=== PATIENT | male | born 1960 | race Two or more races ===

== ENCOUNTER 2021-03-12 20:07 | Inpatient (IN) | payer MEDICAID ==
[~2021-03-12] VITALS: Ht 165.1 cm; Wt 58.5 kg
--- NOTE | 2021-03-12 20:43 | NUR ---
PATIENT BIBPA FROM [facility] C/O LEFT FOOT GANGRENE. PATIENT A/O, RR EVEN AND UNLABORED, NO SOB NOTED, PATIENT CONNECTED TO CHILDREN LIBRARIAN AND POX.
--- NOTE | 2021-03-12 20:44 | NUR ---
ER PA AT BEDSIDE
--- NOTE | 2021-03-12 20:54 | NUR ---
LAC #20G S/L; PATENT AND INTACT. BIG DATA ADMIN AT PT'S BEDSIDE & BLOOD COLLECTED
--- NOTE | 2021-03-12 21:09 | NUR ---
BODY SHOP SUPERVISOR AT PT'S BEDSIDE
[2021-03-12 21:37] LABS: BASOPHILS # (AUTO) 0.1 K/uL (0.0-0.2); BASOPHILS % (AUTO) 0.8 % (0.0-2.0); EOSINOPHILS % (AUTO) 1.9 % (0.0-6.0); HEMATOCRIT 33 % (39-51); LYMPHOCYTES # (AUTO) 2.2 K/uL (0.8-4.8); LYMPHOCYTES % (AUTO) 20.9 % (20.0-44.0); MEAN CORPUSCULAR HGB CONC 33 g/dl (31.0-36.0); MEAN CORPUSCULAR VOLUME 87 fL (80-96); MONOCYTES # (AUTO) 0.9 K/uL (0.1-1.30); MONOCYTES % (AUTO) 8.1 % (2.0-12.0); NEUTROPHILS # (AUTO) 7.2 K/uL (1.8-8.9); NEUTROPHILS % (AUTO) 68.3 % (43.0-81.0); PLATELET COUNT (AUTO) 824 K/uL (150-450); RED BLOOD CELL COUNT(AUTO) 3.82 MIL/uL (4.5-6.0); WHITE BLOOD COUNT (AUTO) 10.5 K/uL (4.3-11.0)
[2021-03-12 21:39] LABS: CALCIUM, SERUM 8.8 mg/dL (8.5-10.1); CARBON DIOXIDE 23 mmol/L (21-32); CHLORIDE 96 mmol/L (98-107); CREATININE 0.9 mg/dL (0.6-1.3); GLUCOSE 76 mg/dL (74-106); POTASSIUM 4.1 mmol/L (3.5-5.1); SODIUM SERUM 129 mmol/L (136-145); UREA NITROGEN, BLOOD 15 mg/dL (7-18)
[2021-03-12 21:44] LABS: ALANINE AMINOTRANSFERASE 20 U/L (12-78); ALBUMIN 2.4 g/dL (3.4-5.0); ALKALINE PHOSPHATASE 128 U/L (46-116); ASPARTATE AMINOTRANSFERASE 19 U/L (15-37); BILIRUBIN,TOTAL 0.1 mg/dL (0.2-1.0); TOTAL PROTEIN, SERUM 8.1 g/dL (6.4-8.2)
--- NOTE | 2021-03-12 21:45 | NUR ---
URINE COLLECTED AND SENT TO LAB
--- NOTE | 2021-03-12 21:48 | NUR ---
LACTIC ACID 2.2. AIRAM LOPEZ NOTIFIED
[2021-03-12] MEDS ORDERED: VANCOMYCIN 1 GM VIAL ONE (21:59)
[2021-03-12] MEDS ORDERED: VANCOMYCIN 1 GM in IV D5W 250 ML IV ONE (22:00)
[2021-03-12] MEDS ORDERED: IV NS 0.9% 1,000 ML BAG IV ONE ×2 (22:00)
[2021-03-12 22:40] LABS: BILIRUBIN,URINE NEGATIVE (NEGATIVE); COLOR,URINE YELLOW (YELLOW); LEUKOCYTE ESTERASE ,URINE NEGATIVE (NEGATIVE); NITRITE, URINE NEGATIVE (NEGATIVE); PROTEIN,URINE 100 mg/dl (NEGATIVE); UGLUCOSE NEGATIVE (NEGATIVE); UROBILINOGEN,URINE 0.2 EU/dL (0.2)
[2021-03-12 22:48] LABS: BACTERIA,URINE None seen /HPF (None Seen); SQUAMOUS EPITHELIAL CELL,UR Few /HPF (None Seen); WBC,URINE 0-2 /HPF (0-3)
[2021-03-13] MEDS ORDERED: ONDANSETRON HCL/PF 4 MG/2 ML VIAL IVP PRN
[2021-03-13] MEDS ORDERED: MAGNESIUM HYDROXIDE 30 ML UDC PO PRN
[2021-03-13] MEDS ORDERED: HYDROCODONE/APAP 5/325MG TABLET PO PRN
[2021-03-13] MEDS ORDERED: ACETAMINOPHEN 325 MG TABLET PO PRN
[2021-03-13] MEDS ORDERED: DEXTROSE 50%-WATER 50 ML DISP.SYRIN IV PRN
--- NOTE | 2021-03-13 00:22 | NUR ---
US TECH AT PT'S BEDSIDE
--- NOTE | 2021-03-13 00:23 | NUR ---
ASSIGNED TO 115-2
--- NOTE | 2021-03-13 00:24 | NUR ---
CALLED FOR REPORT, RN ON PHONE
--- NOTE | 2021-03-13 00:29 | NUR ---
REPORT GIVEN TO REHAN SALEEM
--- NOTE | 2021-03-13 00:30 | NUR ---
RN NOTE REPORT RECEIVED BY REHAN AGUILAR.
--- NOTE | 2021-03-13 00:40 | NUR ---
PT TRANSFERRED TO [facility]
--- NOTE | 2021-03-13 00:45 | NUR ---
RN NOTE PT TRANSFERRED TO [facility]IA GURNEY FROM ER. PT IS ON ROOM AIR SHOWING NO S/S OF RESP DISTRESS/SOB. BREATHING EVEN AND UNLABORED. PT IS CONFUSED, A/OX1. LEFT TOE GANGRENE NOTED. ON CCHO DIET. IV ACCESS NOTED ON LEFT AC #20. LINE FLUSHED, PATENT, AND INTACT WITH NO SIGNS OF INFILTRATION. ALL SAFETY MEASURES IMPLEMENTED. CALL LIGHT WITHIN REACH. BED ALARM ON. BED LOCKED AND IN LOWEST POSITION. WILL CONTINUE TO MONITOR AND ASSESS FOR ANY CHANGES DURING SHIFT.
[2021-03-13 01:00] VITALS: BP 126/77
[2021-03-13] MEDS ORDERED: CEFTRIAXONE 1 G VIAL ONE (01:00)
[2021-03-13] MEDS ORDERED: CEFEPIME 1 GM in IV D5W 50 ML IV SCH (01:00)
[2021-03-13] MEDS: IV NS 0.9% 1,000 ML IV PRN ×2 (01:04→23:41)
[2021-03-13] MEDS ORDERED: CEFEPIME 1 GM VIAL ONE (01:14)
[2021-03-13 04:00] VITALS: BP 130/80
--- NOTE | 2021-03-13 06:56 | NUR ---
RN NOTE NO CHANGES IN PT CONDITION DURING SHIFT. PT IS ON ROOM AIR SHOWING NO S/S OF RESP DISTRESS/SOB. BREATHING EVEN AND UNLABORED. PT IS CONFUSED, A/OX1. LEFT TOE GANGRENE NOTED. IV ACCESS NOTED ON LEFT AC #20. LINE FLUSHED, PATENT, AND INTACT WITH NO SIGNS OF INFILTRATION. ALL DUE MEDS GIVEN ORDERED. PT KEPT CLEAN AND COMFORTABLE. ALL SAFETY MEASURES IMPLEMENTED. CALL LIGHT WITHIN REACH. BED ALARM ON. BED LOCKED AND IN LOWEST POSITION. WILL ENDORSE TO MORNING SHIFT RN FOR FRANK.
[2021-03-13] MEDS ORDERED: HALO5TAB PO (07:38)
[2021-03-13] MEDS ORDERED: ATOR20TA PO (07:38)
[2021-03-13] MEDS ORDERED: MULT-447 PO (07:38)
[2021-03-13] MEDS ORDERED: INSU100V39 SQ (07:38)
[2021-03-13] MEDS ORDERED: ASCO500C17 PO (07:38)
[2021-03-13] MEDS ORDERED: INSU100V7 SQ (07:38)
[2021-03-13] MEDS ORDERED: METF-442 PO (07:38)
--- NOTE | 2021-03-13 07:49 | NUR ---
RN OPENING NOTE PATIENT RECEIVED IN BED, RESTING. PATIENT ON ROOM AIR WITH NO SIGNS OF LABORED BREATHING AT THIS TIME. BILATERAL SOFT WRIST RESTRAINS ON, SKIN WARM AND INTACT. LEFT AC 20G IV IN PLACE. BED LOCKED AND IN LOWEST POSITION, CALL LIGHT WITHIN REACH, 3 SIDE RAILS UP. NO SIGNS OF DISTRESS NOTED AT THIS TIME. WILL CONTINUE TO MONITOR.
[2021-03-13 07:54] LABS: BASOPHILS % (AUTO) 0.5 % (0.0-2.0); EOSINOPHILS % (AUTO) 1.6 % (0.0-6.0); HEMATOCRIT 30 % (39-51); HEMOGLOBIN 10.2 g/dL (13.5-17.5); LYMPHOCYTES # (AUTO) 1.9 K/uL (0.8-4.8); MEAN CORPUSCULAR HGB CONC 34 g/dl (31.0-36.0); MEAN CORPUSCULAR VOLUME 86 fL (80-96); MONOCYTES # (AUTO) 0.6 K/uL (0.1-1.30); MONOCYTES % (AUTO) 5.9 % (2.0-12.0); NEUTROPHILS # (AUTO) 6.9 K/uL (1.8-8.9); PLATELET COUNT (AUTO) 879 K/uL (150-450); RED BLOOD CELL COUNT(AUTO) 3.52 MIL/uL (4.5-6.0); WHITE BLOOD COUNT (AUTO) 9.5 K/uL (4.3-11.0)
[2021-03-13 08:00] VITALS: BP 128/72
[2021-03-13] MEDS: BLOOD SUGAR DIAGNOSTIC 1 EACH STRIP IN SCH ×4 (08:04→23:24)
[2021-03-13] MEDS: PANTOPRAZOLE 40 MG TABLET.DR PO SCH (08:07)
[2021-03-13 08:11] LABS: ALBUMIN 2.4 g/dL (3.4-5.0); BILIRUBIN,TOTAL 0.1 mg/dL (0.2-1.0); CALCIUM, SERUM 8.3 mg/dL (8.5-10.1); CREATININE 0.6 mg/dL (0.6-1.3); MAGNESIUM 1.8 mg/dL (1.8-2.4); PHOSPHORUS 3.3 mg/dL (2.5-4.9); POTASSIUM 4.7 mmol/L (3.5-5.1); TOTAL PROTEIN, SERUM 7.2 g/dL (6.4-8.2)
[2021-03-13 08:28] LABS: THYROID STIMULATING HORMONE 4.384 uIU/mL (0.358-3.74)
--- NOTE | 2021-03-13 09:22 | NUR ---
RN NOTE WAITING FOR MIDLINE NURSE TO PLACE IV ACCESS. IVPB MEDICATION PENDING UNTIL ACCESS. WILL CONTINUE TO MONITOR.
--- NOTE | 2021-03-13 10:03 | NUR ---
WOUND CARE CONSULT: REVIEWED CHART, NURSING DOCUMENTATION AND PHOTOS WHICH INDICATE LEFT FOOT BLACK NECROTIC TISSUE, PRESENT ON ADMISSION.DR PAYNE NOTIFIED OF DPM CONSULT REQUEST. RECOMMENDATIONS MADE FOR SKIN PROTECTION. DISCUSSED WITH NURSING STAFF. MD IN AGREEMENT WITH PLAN OF CARE.
[2021-03-13] MEDS: VANCOMYCIN 0.75 GM in IV D5W 250 ML IV SCH ×3 (10:12→23:31)
[2021-03-13] MEDS: CEFEPIME 2 GM in IV D5W 100 ML IV SCH ×2 (11:09→21:37)
[2021-03-13] MEDS: INSULIN REGULAR, HUMAN 100 UNIT/ML 3 ML VIAL SQ PRN ×3 (12:37→23:23)
[2021-03-13] MEDS: GLUCERNA SHAKE 237 ML CAN PO SCH ×3 (14:00→17:02)
[2021-03-13 16:00] VITALS: BP 123/69
--- NOTE | 2021-03-13 18:57 | NUR ---
RN CLOSING NOTE PATIENT REMAINS IN BED, AWAKE, A&OX1. PATIENT ON ROOM AIR WITH NO SIGNS OF LABORED BREATHING AT THIS TIME. BILATERAL SOFT WRIST RESTRAINS ON, SKIN WARM AND INTACT. RIGHT UA MIDLINE 18G IN PLACE, PATENT AND RUNNING NS AT 75 CC/HR. BED LOCKED AND IN LOWEST POSITION, CALL LIGHT WITHIN REACH, 3 SIDE RAILS UP. NO SIGNS OF DISTRESS NOTED AT THIS TIME. ALL NEEDS ATTENDED DURING SHIFT. WILL ENDORSE TO PUMPMAN NURSE.
--- NOTE | 2021-03-13 20:00 | NUR ---
RN OPENING NOTED PATIENT IN BED,A/0X 2-3 RESTING IN BED . ON ROOM AIR WITH NO SIGNS OF LABORED BREATHING AT THIS TIME. BILATERAL SOFT WRIST RESTRAINS ON, SKIN WARM AND INTACT. RIGHT UPPER ARM MIDLINE G# 18G IV IN PLACE.IVF OF NS AT 75CC/HR INFUSING WELL .DUE MEDS GIVEN ORDERED . BED LOCKED AND IN LOWEST POSITION, CALL LIGHT WITHIN REACH, 3 SIDE RAILS UP. NO SIGNS OF DISTRESS NOTED AT THIS TIME. WILL CONTINUE TO MONITOR.
--- NOTE | 2021-03-13 23:26 | NUR ---
ms rn notes Blood sugar of 133mg/dl 2 units of regular insulin given per sliding scale. will check bs again in am
[2021-03-14 04:00] VITALS: BP 141/85
--- NOTE | 2021-03-14 06:50 | NUR ---
RN CLOSING NOTE PATIENT REMAINS IN BED, AWAKE,. PATIENT ON ROOM AIR WITH NO SIGNS OF LABORED BREATHING AT THIS TIME.REMAINS ON BILATERAL SOFT WRIST RESTRAINS ON, SKIN WARM AND INTACT. RIGHT UA MIDLINE 18G IN PLACE, PATENT AND RUNNING NS AT 75 CC/HR. BED LOCKED AND IN LOWEST POSITION, CALL LIGHT WITHIN REACH, 3 SIDE RAILS UP. NEEDS ATTENDED DURING SHIFT. WILL ENDORSE TO RN DAY SHIFT FOR CONTINUITY OF CARE.
--- NOTE | 2021-03-14 07:20 | NUR ---
RN NOTE REPORT REC'D AT BEDSIDE BY TSERING VAN. PT IS AWAKE, ALERT, ORIENTED TO NAME ONLY. ON RA. IN NO ACUTE DISTRESS. BREATHING EVEN AND UNLABORED. IVF INFUSING WELL TO EVELIO MIDLINE. DRESSING TO LEFT FOOT CLEAN DRY AND INTACT. MRI LEFT FOOT PENDING. BILATERAL SOFT WRIST RESTRAINTS IN PLACE TO PREVENT PULLING OUT THERAPEUTIC LINES. SAFETY MEASURCES IMPLEMENTED. WILL FOLLOW UP MRI. CONTINUE TO MONITOR.
[2021-03-14] MEDS: GLUCERNA SHAKE 237 ML CAN PO SCH ×2 (08:00→17:40)
[2021-03-14] MEDS: INSULIN REGULAR, HUMAN 100 UNIT/ML 3 ML VIAL SQ PRN ×4 (08:36→22:43)
[2021-03-14] MEDS: BLOOD SUGAR DIAGNOSTIC 1 EACH STRIP IN SCH ×4 (08:36→22:35)
[2021-03-14] MEDS: PANTOPRAZOLE 40 MG TABLET.DR PO SCH (09:06)
[2021-03-14] MEDS: CEFEPIME 2 GM in IV D5W 100 ML IV SCH ×2 (09:06→22:08)
[2021-03-14 09:26] LABS: BASOPHILS % (AUTO) 0.6 % (0.0-2.0); EOSINOPHILS % (AUTO) 2.2 % (0.0-6.0); HEMATOCRIT 31 % (39-51); HEMOGLOBIN 10.4 g/dL (13.5-17.5); LYMPHOCYTES # (AUTO) 1.9 K/uL (0.8-4.8); LYMPHOCYTES % (AUTO) 23.5 % (20.0-44.0); MEAN CORPUSCULAR HGB CONC 34 g/dl (31.0-36.0); MEAN CORPUSCULAR VOLUME 86 fL (80-96); MONOCYTES # (AUTO) 0.7 K/uL (0.1-1.30); MONOCYTES % (AUTO) 8.2 % (2.0-12.0); NEUTROPHILS # (AUTO) 5.4 K/uL (1.8-8.9); NEUTROPHILS % (AUTO) 65.5 % (43.0-81.0); PLATELET COUNT (AUTO) 842 K/uL (150-450); RED BLOOD CELL COUNT(AUTO) 3.57 MIL/uL (4.5-6.0); WHITE BLOOD COUNT (AUTO) 8.3 K/uL (4.3-11.0)
[2021-03-14] MEDS: VANCOMYCIN 0.75 GM in IV D5W 250 ML IV SCH ×2 (09:50→17:41)
[2021-03-14 10:25] LABS: ALBUMIN 2.2 g/dL (3.4-5.0); BILIRUBIN,TOTAL 0.1 mg/dL (0.2-1.0); CALCIUM, SERUM 8.2 mg/dL (8.5-10.1); CREATININE 0.8 mg/dL (0.6-1.3); MAGNESIUM 1.9 mg/dL (1.8-2.4); PHOSPHORUS 3.3 mg/dL (2.5-4.9); POTASSIUM 4.2 mmol/L (3.5-5.1); TOTAL PROTEIN, SERUM 7.2 g/dL (6.4-8.2)
[2021-03-14 12:00] VITALS: BP 138/77
--- NOTE | 2021-03-14 15:25 | NUR ---
RN NOTE REC'D A CALL FR LUCERO/MRI RE: PTS SCHEDULED MRI LEFT FOOT.
--- NOTE | 2021-03-14 16:02 | NUR ---
RN NOTE PT EN ROUTE TO MRI VIA BED. NO SOB. PT CALM AND COOPERATIVE. NO SIGNS OR SX OF RESTLESSNESS NOTED.
--- NOTE | 2021-03-14 17:13 | NUR ---
RN NOTE PT BACK IN ROOM. MRI COMPLETED. IVF REINFUSED. OFF RESTRAINTS FOR NOW. WILL MONITOR.
[2021-03-14] MEDS: IV NS 0.9% 1,000 ML IV PRN (17:43)
[2021-03-14] MEDS ORDERED: GADOTERATE MEGLUMINE 5 MMOL/10 ML VIAL IV ONE (17:52)
--- NOTE | 2021-03-14 19:23 | NUR ---
RN OPENING NOTES RECEIVED PT IN BED, ASLEEP, AWAKENS TO VERBAL STIMULI. AOx1. ON RA AND TOLERATING WELL. NO S/SX OF RESPIRATORY DISTRESS NOTED. . IV ACCESS IN EVELIO MIDLINE #18 RUNNING NS @ 75 ML/HR. SAFETY PRECAUTIONS IN PLACE: BED IN LOWEST, LOCKED POSITION, SIDERAILS UPx2, AND BRAKES ON. TABLE AND CALL LIGHT WITHIN REACH. WILL CONTINUE TO MONITOR.
--- NOTE | 2021-03-14 19:25 | NUR ---
RN NOTE PT ASLEEP. LEFT UNDISTURBED. BREATHING UNLABORED. NO SOB. IVF INFUSING WELL TO EVELIO MIDLINE. ALL MEDS GIVEN SCHEDULED. DRESSING TO LEFT FOOT C/D/I.SAFETY MEASURES IN PLACE. CALL LIGHT WITHIN REACH. FRANK ENDORSED TO REHAN CHANG.
[2021-03-14 20:00] VITALS: BP 133/71
--- NOTE | 2021-03-14 20:00 | NUR ---
RN NOTES RECEIVED REPORT. PATIENT IN BED A/O X1 NOT IN DISTRESS NO SOB NOTED AT THIS TIME. WITH R UA MIDLINE PATENT FLUSHES WELL. WITH ONGOING IVF OF NS @75CC/HR. WITH BILATERAL SOFT RESTRAINTS IN PLACE DUE TO PATIENT PULLING OUT IV LINES AND TRYING TO GET OUT OF BED. ALL SAFETY MEASURES IN PLACE AT ALL TIMES. CALL LIGHT WITHIN REACH. BOTH SIDE RAILS UP FOR SAFETY. BED ON LOWEST POSITION AND LOCKED. WILL CONTINUE TO MONITOR.
--- NOTE | 2021-03-14 22:00 | NUR ---
RN NOTES BS 149MG/DL 2 UNITS FO REGULAR INSULIN BY SLIDING SCALE GIVEN ORDERED. PATIENT REMAINS STABLE. WILL CONTINUE TO MONITOR
[2021-03-15] MEDS: VANCOMYCIN 0.75 GM in IV D5W 250 ML IV SCH ×3 (00:06→16:44)
[2021-03-15 04:00] VITALS: BP 96/50
--- NOTE | 2021-03-15 06:50 | NUR ---
RN NOTES PATIENT REMAINS STABLE NO SIGNIFICANT CHANGES IN HEALTH CONDITION. STILL ON IV TOLERATING WELL. ALL DUE MEDS GIVEN ORDERED. ALL SAFETY MEASURES IN PLACE AT ALL TIMES. HOB ELEVATED. CALL LIGHT WITHIN REACH BED ON LOWEST POSITION AND LOCKED. FREQUENT VISUAL MONITORING RENDERED. STILL WITH BILATERAL SOFT RESTRAINTS. WILL CONTINUE TO MONITOR
[2021-03-15] MEDS: PANTOPRAZOLE 40 MG TABLET.DR PO SCH (08:17)
[2021-03-15] MEDS: BLOOD SUGAR DIAGNOSTIC 1 EACH STRIP IN SCH ×4 (08:17→21:45)
[2021-03-15] MEDS: GLUCERNA SHAKE 237 ML CAN PO SCH ×2 (08:18→17:00)
--- NOTE | 2021-03-15 09:06 | NUR ---
per [place] [facility] patient covid negative.
[2021-03-15 09:15] LABS: BASOPHILS # (AUTO) 0.1 K/uL (0.0-0.2); BASOPHILS % (AUTO) 0.7 % (0.0-2.0); EOSINOPHILS % (AUTO) 2.8 % (0.0-6.0); HEMATOCRIT 33 % (39-51); HEMOGLOBIN 11.2 g/dL (13.5-17.5); LYMPHOCYTES # (AUTO) 2.2 K/uL (0.8-4.8); LYMPHOCYTES % (AUTO) 23.6 % (20.0-44.0); MEAN CORPUSCULAR HGB CONC 34 g/dl (31.0-36.0); MEAN CORPUSCULAR VOLUME 87 fL (80-96); MONOCYTES # (AUTO) 0.7 K/uL (0.1-1.30); MONOCYTES % (AUTO) 7.7 % (2.0-12.0); NEUTROPHILS % (AUTO) 65.2 % (43.0-81.0); PLATELET COUNT (AUTO) 848 K/uL (150-450); RED BLOOD CELL COUNT(AUTO) 3.83 MIL/uL (4.5-6.0); WHITE BLOOD COUNT (AUTO) 9.2 K/uL (4.3-11.0)
--- NOTE | 2021-03-15 09:28 | NUR ---
RN NOTE RECEIVED PT AWAKE IN BED, ALERT AND VERBALLY RESPONSIVE. IN ROOM AIR WITH O2 SAT OF 100%. EVELIO MIDLINE G18 IN PLACE AND PATENT, ON IVF NS @75 CC/HR.WITH BILATERAL ARM SOFT RESTRAINTS ON, NO SS OF CIRCULATORY IMPAIRMENT. WILL CONTINUE TO MONITOR. ALL SAFETY MEASURES FOLLOWED.
[2021-03-15] MEDS: INSULIN REGULAR, HUMAN 100 UNIT/ML 3 ML VIAL SQ PRN ×2 (09:41→21:53)
[2021-03-15] MEDS: CEFEPIME 2 GM in IV D5W 100 ML IV SCH ×2 (09:47→21:18)
[2021-03-15 12:00] VITALS: BP 96/50
[2021-03-15 12:09] LABS: ALBUMIN 2.4 g/dL (3.4-5.0); BILIRUBIN,TOTAL 0.1 mg/dL (0.2-1.0); CALCIUM, SERUM 8.1 mg/dL (8.5-10.1); CREATININE 0.7 mg/dL (0.6-1.3); MAGNESIUM 1.7 mg/dL (1.8-2.4); PHOSPHORUS 2.9 mg/dL (2.5-4.9); POTASSIUM 4.1 mmol/L (3.5-5.1); TOTAL PROTEIN, SERUM 7.6 g/dL (6.4-8.2)
--- NOTE | 2021-03-15 13:02 | NUR ---
patient for surgery in am,no famil unable to consent.dr. winkler and dr. joan serra signed consent.
[2021-03-15] MEDS: IV NS 0.9% 1,000 ML IV PRN (13:45)
[2021-03-15] MEDS: Magnesium 1GM/D5W 100ML PREMIX 100 ML IV SCH ×2 (15:49→17:55)
--- NOTE | 2021-03-15 18:48 | NUR ---
RN NOTE PT RESTING IN BED, ALERT AND VERBALLY RESPONSIVE. CONTINUES IN ROOM AIR WITH O2 SAT OF 99%. EVELIO MIDLINE G18 IN PLACE AND PATENT, ON IVF NS @75 CC/HR.WITH BILATERAL ARM SOFT RESTRAINTS ON, NO SS OF CIRCULATORY IMPAIRMENT. WILL CONTINUE TO MONITOR. DUE MEDICATIONS GIVEN. ALL SAFETY MEASURES FOLLOWED. PT TO BE NPO POST MIDNIGHT PRIOR SURGERY. WILL ENDORSE TO NEXT SHIFT.
--- NOTE | 2021-03-15 19:45 | NUR ---
MS RN NOTES RECEIVED TRANSFER FROM [facility] BY BED,A/O X1,BREATHING REGULAR,NOT IN ANY FORM OF DISTRESS,ON BILATERAL SOFT WRIST RESTRAINTS,EPISODE OF CONFUSION AND GETTING OU OF BED,IVF NS AT 75ML/HR RATE,INFUSING VIA EVELIO MIDLINE VIA IV PUMP.NOTED GANGRENE ON LEFT TOE,NPO POST MIDNIGHT GOING FOR INCISION AND DRAINAGE LEFT FOOT ABSCESS,SECOND RAY RESECTION/AMPUTATION LEFT FOOT,BONE BIOPSY LEFT THIRD METATARSAL HEAD.CONSENT ON CHART SIGNED BY MD.NO FAMILY MEMBER.WILL CONTINUE TO MONITOR STATUS.
[2021-03-15 20:00] VITALS: BP 111/63
[2021-03-15 20:23] VITALS: BP 111/63
--- NOTE | 2021-03-15 21:00 | NUR ---
MS RN NOTES IV MAXIPIME 2GM HUNG
--- NOTE | 2021-03-15 22:00 | NUR ---
MS RN NOTES ACCU-CHECK BLOOD SUGAR CHECK 266,COVERED WITH HUMULIN R 6 UNITS PER SLIDING SCALE.
[2021-03-16] MEDS: VANCOMYCIN 0.75 GM in IV D5W 250 ML IV SCH ×2 (00:06→07:40)
--- NOTE | 2021-03-16 05:30 | NUR ---
MS RN NOTES ACCU-CHECK BLOOD SUGAR CHECKED 142,NO INSULIN COVERAGE,NPO STATUS,GOING FOR SURGERY AT 10 AM
--- NOTE | 2021-03-16 06:31 | NUR ---
MS RN NOTES CALM AND QUIET THRU OUT SHIFT.RESTRAINTS RELEASED ON AND OFF,NPO POST MIDNIGHT FOR SURGERY AT 10 AM,IVF IN PROGRESS.,IN NO ACUTE DISTRESS.WILL ENDORSE ON DAY NURSE FOR FRANK.
[2021-03-16 06:56] LABS: BASOPHILS % (AUTO) 0.2 % (0.0-2.0); EOSINOPHILS % (AUTO) 3.1 % (0.0-6.0); HEMATOCRIT 31 % (39-51); HEMOGLOBIN 10.8 g/dL (13.5-17.5); LYMPHOCYTES # (AUTO) 1.9 K/uL (0.8-4.8); LYMPHOCYTES % (AUTO) 25.3 % (20.0-44.0); MEAN CORPUSCULAR HGB CONC 35 g/dl (31.0-36.0); MEAN CORPUSCULAR VOLUME 86 fL (80-96); MONOCYTES # (AUTO) 0.6 K/uL (0.1-1.30); MONOCYTES % (AUTO) 7.8 % (2.0-12.0); NEUTROPHILS # (AUTO) 4.9 K/uL (1.8-8.9); NEUTROPHILS % (AUTO) 63.6 % (43.0-81.0); PLATELET COUNT (AUTO) 758 K/uL (150-450); RED BLOOD CELL COUNT(AUTO) 3.64 MIL/uL (4.5-6.0); WHITE BLOOD COUNT (AUTO) 7.7 K/uL (4.3-11.0)
[2021-03-16 07:35] LABS: ALBUMIN 2.3 g/dL (3.4-5.0); BILIRUBIN,TOTAL 0.1 mg/dL (0.2-1.0); CALCIUM, SERUM 8.2 mg/dL (8.5-10.1); CREATININE 0.7 mg/dL (0.6-1.3); PHOSPHORUS 2.8 mg/dL (2.5-4.9); TOTAL PROTEIN, SERUM 7.5 g/dL (6.4-8.2)
[2021-03-16] MEDS: BLOOD SUGAR DIAGNOSTIC 1 EACH STRIP IN SCH ×4 (07:35→23:04)
[2021-03-16] MEDS: PANTOPRAZOLE 40 MG TABLET.DR PO SCH (07:40)
--- NOTE | 2021-03-16 07:55 | NUR ---
MS RN OPENING NOTE Patient in bed, asleep. A/O x 1. On room air, breathing evenly and unlabored. No SOB or s/s of distress noted. IV access on EVELIO midline #18G infusing NS at 75 ml/hr. Dressing on Left foot intact and patent. NPO except meds maintained. Safety measures in place: bed in low, locked position; siderails up x 2; call light within reach. Will continue to monitor.
[2021-03-16 08:00] VITALS: BP 129/76
[2021-03-16] MEDS: GLUCERNA SHAKE 237 ML CAN PO SCH ×2 (08:00→17:09)
[2021-03-16] MEDS: CEFEPIME 2 GM in IV D5W 100 ML IV SCH (08:57)
[2021-03-16] MEDS ORDERED: ANESTHESIA TRAY IN PYXIS 1 EA TRAY MC ONE (09:41)
[2021-03-16] MEDS ORDERED: BUPIVACAINE 0.5 % PF 150 MG/30 ML VIAL ONE (09:41)
--- NOTE | 2021-03-16 09:45 | NUR ---
RN NOTE Patient brought to OR.
[2021-03-16] MEDS ORDERED: VANCOMYCIN 1 GM VIAL ONE (09:55)
[2021-03-16] MEDS ORDERED: FENTANYL PF 100MCG/2ML AMPUL ONE (09:56)
--- NOTE | 2021-03-16 11:45 | NUR ---
RN NOTE Patient brought back to room 312-2 in stable condition. Vital signs as follows: BP 115/80, AR 60, RR 18, Temp 97.8.
[2021-03-16] MEDS: INSULIN REGULAR, HUMAN 100 UNIT/ML 3 ML VIAL SQ PRN ×3 (12:38→23:05)
[2021-03-16 16:00] VITALS: BP 107/65
[2021-03-16] MEDS: AMPICILLIN 1 GM in IV NS 0.9% 50 ML IV SCH ×2 (17:41→23:37)
[2021-03-16] MEDS: IV NS 0.9% 1,000 ML IV PRN (17:41)
--- NOTE | 2021-03-16 19:09 | NUR ---
MS RN CLOSING NOTE Patient in bed, resting comfortably. A/O x 1. On room air, breathing evenly and unlabored. No SOB or s/s of distress noted. IV access on EVELIO midline #18G infusing NS at 75 ml/hr. 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 Dressing on Left foot intact and patent. All needs attended to. Due meds given. Safety measures maintained: bed in low, locked position; siderails up x 2; call light within reach. Will endorse to night shift manager nurse for FRANK.
--- NOTE | 2021-03-16 19:47 | NUR ---
RN NOTES: RECEIVED PATIENT AWAKE IN BED, BED IN LOW POSITION, CALL LIGHTS WITHIN REACH, NO COMPLAIN OF PAIN AND DISCOMFORT AT THIS TIME, PATIENT WAS A/O 1 ON BED, WITH EVELIO MIDLINE WITH ONGOING [id number] PER HOUR INFUSING WELLL, PATIENT KEPT CLEAN AND DRY, ALL NEEDS MET, WILL CONTINUE TO MONTIOR.
[2021-03-16 20:00] VITALS: BP 107/65
[2021-03-16 20:55] VITALS: BP 107/65
[2021-03-17] MEDS: AMPICILLIN 1 GM in IV NS 0.9% 50 ML IV SCH ×2 (05:58→12:07)
--- NOTE | 2021-03-17 07:20 | NUR ---
MS RN OPENING NOTES RECEIVED PT IN BED, AWAKE, A/O X2, VERBALLY RESPONSIVE. ON ROOM AIR, NO SOB NOTED, BREATHING EVEN AND UNLABORED. IV ACCESS ON EVELIO ML #18 INTACT AND PATENT, NSS @75ML/HR RUNNING. DENIES ANY PAIN OR DISCOMFORT AT THIS TIME. SAFETY PREACUTIONS OBSERVED, BED LOCKED AND IN LOWEST POSITION, SR UP X2, CALL LIGHT PLACED WITHIN EASY REACHED. WILL CONTINUE TO MONITOR.
--- NOTE | 2021-03-17 07:35 | NUR ---
RN CLOSING NOTES: PATIENT SLEEP IN BED COMFORTABLY, BED IN LOW POSITION, CALL LIGHTS WITHIN REACH NO COMPLAIN OF PAIN AND DISCOMFORT AT THIS TIME, PATIENT IS A/O X1 ON BILATERAL SOFT RESTRAINT, RELEASE AND SKIN ASSESSMENT DONE, WITH IV LINE AT EVELIO #18 WITH ONGOING NSS@75ML PER HOUR INFUSING WELL, PATIENT KEPT CLEAN AND DY ALL NEEDS MET, ENDORSE TO INCOMING SHIFT.
[2021-03-17 07:36] LABS: BASOPHILS # (AUTO) 0.1 K/uL (0.0-0.2); BASOPHILS % (AUTO) 0.6 % (0.0-2.0); EOSINOPHILS % (AUTO) 0.2 % (0.0-6.0); HEMATOCRIT 30 % (39-51); HEMOGLOBIN 10.4 g/dL (13.5-17.5); LYMPHOCYTES # (AUTO) 2.2 K/uL (0.8-4.8); LYMPHOCYTES % (AUTO) 15.2 % (20.0-44.0); MEAN CORPUSCULAR HGB CONC 35 g/dl (31.0-36.0); MEAN CORPUSCULAR VOLUME 86 fL (80-96); MONOCYTES # (AUTO) 0.8 K/uL (0.1-1.30); MONOCYTES % (AUTO) 5.7 % (2.0-12.0); NEUTROPHILS # (AUTO) 11.3 K/uL (1.8-8.9); NEUTROPHILS % (AUTO) 78.3 % (43.0-81.0); PLATELET COUNT (AUTO) 733 K/uL (150-450); RED BLOOD CELL COUNT(AUTO) 3.48 MIL/uL (4.5-6.0); WHITE BLOOD COUNT (AUTO) 14.4 K/uL (4.3-11.0)
[2021-03-17] MEDS: PANTOPRAZOLE 40 MG TABLET.DR PO SCH (07:59)
[2021-03-17 08:00] VITALS: BP 111/59
[2021-03-17] MEDS: GLUCERNA SHAKE 237 ML CAN PO SCH ×2 (08:00→17:06)
[2021-03-17] MEDS: INSULIN REGULAR, HUMAN 100 UNIT/ML 3 ML VIAL SQ PRN ×3 (08:20→17:18)
[2021-03-17] MEDS: BLOOD SUGAR DIAGNOSTIC 1 EACH STRIP IN SCH ×3 (08:20→17:17)
[2021-03-17 08:30] LABS: ALBUMIN 2.4 g/dL (3.4-5.0); BILIRUBIN,TOTAL 0.2 mg/dL (0.2-1.0); CALCIUM, SERUM 8.3 mg/dL (8.5-10.1); CREATININE 0.7 mg/dL (0.6-1.3); MAGNESIUM 2.3 mg/dL (1.8-2.4); PHOSPHORUS 2.6 mg/dL (2.5-4.9); POTASSIUM 4.3 mmol/L (3.5-5.1); TOTAL PROTEIN, SERUM 7.6 g/dL (6.4-8.2)
[2021-03-17 16:00] VITALS: BP 139/67
--- NOTE | 2021-03-17 19:01 | NUR ---
DIRECT SUPPORT PROFESSIONAL NOTES PATIENT DISCHARGED TO [facility] IN STABLE CONDITION. A/O X2, VERBALLY RESPONSIVE. NO SIGNS OF ACUTE DISTRESS NOTED. VITAL SIGNS TAKEN, STABLE AND RECORDED. ALL BELONGINGS ACCOUNTED FOR, FORM SIGNED BY PT. IV ACCESS ON EVELIO REMOVED, NO BLEEDING NOTED, PRESSURE DRESSING APPLIED. DISCHARGE INSTRUCTIONS PROVIDED TO PT. PHOTOS TAKEN OF SKIN ISSUES PLACED IN CHART. REPORT GIVEN TO [facility] C/O BELEN DOWELL. TRIED TO CALL PT'S MECHANIC'S ASSISTANT BUT UNABLE TO LEAVE MESSAGE. EXIT FOLDER SENT WITH PT. PATIENT LEFT UNIT AT 1900, PICKED UP BY [facility] VIA GURNEY TO BE TRANSPORTED TO [facility]. CN AWARE OF DISCHARGE.
== END 2021-03-17 19:00 | DRG 305 ==
LOC: ER 20:14 → MEDSG1 03-13 00:31 → MED 03-15 19:05
PROVIDERS: ADMIT Registered Nurse
PROC: 05HD33Z Insertion of Infusion Device into Right Cephalic Vein, Percutaneous Approach (ICD-10-PCS; 2021-03-13)
PROC: 0QBP0ZZ Excision of Left Metatarsal, Open Approach (ICD-10-PCS; principal; 2021-03-16)
PROC: 0Y6N0ZB Detachment at Left Foot, Partial 2nd Ray, Open Approach (ICD-10-PCS; principal; 2021-03-16)
DX: E11.52 Type 2 diabetes mellitus with diabetic peripheral angiopathy with gangrene (principal); E87.2 Acidosis; I96 Gangrene, not elsewhere classified; E87.1 Hypo-osmolality and hyponatremia; M86.8X7 Other osteomyelitis, ankle and foot; E11.42 Type 2 diabetes mellitus with diabetic polyneuropathy; D64.9 Anemia, unspecified; E11.69 Type 2 diabetes mellitus with other specified complication; L03.116 Cellulitis of left lower limb; L97.529 Non-pressure chronic ulcer of other part of left foot with unspecified severity; D75.839 Thrombocytosis, unspecified; E11.628 Type 2 diabetes mellitus with other skin complications; L02.612 Cutaneous abscess of left foot; E78.5 Hyperlipidemia, unspecified; I10 Essential (primary) hypertension; F41.9 Anxiety disorder, unspecified; F20.9 Schizophrenia, unspecified; S92.322A Displaced fracture of second metatarsal bone, left foot, initial encounter for closed fracture; Z20.822 Contact with and (suspected) exposure to COVID-19; E11.621 Type 2 diabetes mellitus with foot ulcer
CPT/HCPCS: 36415; 71045-TC; 73630-TC; 73720-TC; 80048-TC; 80053-TC; 80076-TC; 80202-TC; 81001; 82962-TC; 83605-TC; 83735-TC; 84100-TC; 84443-TC; 85025-TC; 85730-TC; 86850-TC; 87040-TC; 87070-TC; 87081-TC; 87186-TC; 88305-TC; 88311-TC; 93926-TC; 97116-TC; 97530-TC; A6253; A6403; A9575; C9803; G0378; J0290; J0692; J0696; J1100; J1815; J2405; J2704; J3010; J3370; J3475; J3490; J7030; J7060; U0003

== ENCOUNTER 2022-07-31 19:34 | Emergency (ER) | payer OTHER ==
[~2022-07-31] VITALS: Ht 165.1 cm; Wt 59.0 kg
[~2022-07-31 19:34] MED LIST: ASCO500C17 PO; ATOR20TA PO; HALO5TAB PO; INSU100V39 SQ; INSU100V7 SQ; METF-442 PO; MULT-447 PO
--- NOTE | 2022-07-31 19:56 | NUR ---
DANIELLE FROM [facility] C/O COUGH & CONGESTION THIS MORNING. AFEBRILE. -PAIN.
--- NOTE | 2022-07-31 20:08 | NUR ---
COVID ANTIGEN SWAB COLLECTED AND SENT TO LAB
--- NOTE | 2022-07-31 21:28 | NUR ---
[facility] ETA 5 MINUTES
--- NOTE | 2022-07-31 21:45 | NUR ---
REPORT GIVEN TO EMT BRYON OF [facility] TRANSPORT UNIT [address]
[2022-07-31 21:56] VITALS: BP 109/68
== END 2022-07-31 21:57 ==
LOC: ER 19:42
DX: R05.9 Cough, unspecified (principal); E11.65 Type 2 diabetes mellitus with hyperglycemia; F20.9 Schizophrenia, unspecified; I10 Essential (primary) hypertension; Z79.4 Long term (current) use of insulin; Z79.899 Other long term (current) drug therapy; Z20.822 Contact with and (suspected) exposure to COVID-19
CPT/HCPCS: 99283; 87426; 82962; C9803